=== PATIENT | male | born 1965 | race Asian ===

== ENCOUNTER 2018-09-26 09:55 | Emergency (ER) | payer SELFPAY ==
[~2018-09-26] VITALS: Ht 167.6 cm; Wt 68.5 kg
[2018-09-26] MEDS ORDERED: ATOR20TA PO (10:12)
--- NOTE | 2018-09-26 10:18 | NUR ---
at bedside to examine patient.
[2018-09-26] MEDS: IBUPROFEN 800 MG TABLET PO ONE (10:43)
[2018-09-26] MEDS ORDERED: IBUPROFEN 800 MG TABLET ONE (10:45)
--- NOTE | 2018-09-26 10:46 | NUR ---
pt. taken down for CT.
--- NOTE | 2018-09-26 10:58 | NUR ---
pt. back from CT.
--- NOTE | 2018-09-26 12:22 | NUR ---
dcd instructions and prescription given to pt. who verbalized understanding. left room ambulatory with steady gait pain well controlled as stated by him.
[2018-09-26 12:26] VITALS: BP 127/78
== END 2018-09-26 12:31 | disposition home or self-care (01) ==
LOC: ER 09:55
DX: S40.011A Contusion of right shoulder, initial encounter (principal); E78.5 Hyperlipidemia, unspecified; Z79.899 Other long term (current) drug therapy; W22.8XXA Striking against or struck by other objects, initial encounter; Y93.89 Activity, other specified; Y92.89 Other specified places as the place of occurrence of the external cause; Y99.8 Other external cause status
CPT/HCPCS: 73200; A4663